=== PATIENT | female | born 1990 | race Caucasian/White ===

== ENCOUNTER 2017-03-19 17:25 | Emergency (ER) | payer OTHER ==
[~2017-03-19] VITALS: Ht 165.1 cm; Wt 111.1 kg
[2017-03-19 19:40] LABS: ALBUMIN 2.6 GM/DL (3.2-5.2); ALBUMIN/GLOBULIN RATIO 0.68 (1.00-1.93); ALKALINE PHOSPHATASE 102 U/L (45-117); ALT/SGPT 15 U/L (12-78); ANION GAP 9 MEQ/L (8-16); AST/SGOT 14 U/L (15-37); BILIRUBIN,DIRECT < 0.1 MG/DL (0.0-0.2); BILIRUBIN,TOTAL 0.2 MG/DL (0.2-1.0); BLOOD UREA NITROGEN 6 MG/DL (7-18); CALCIUM LEVEL 8.3 MG/DL (8.5-10.1); CARBON DIOXIDE LEVEL 22 MEQ/L (21-32); CHLORIDE LEVEL 106 MEQ/L (98-107); CREATININE FOR GFR 0.39 MG/DL (0.55-1.02); GLOMERULAR FILTRATION RATE > 60.0 (>60); GLUCOSE, FASTING 100 MG/DL (70-105); POTASSIUM SERUM 3.7 MEQ/L (3.5-5.1); SODIUM LEVEL 137 MEQ/L (136-145); TOTAL PROTEIN 6.4 GM/DL (6.4-8.2)
[2017-03-19 19:45] LABS: BASO % 0.1 % (0.0-1.0); EOS # 0.2 K/mm3 (0.0-0.50); FREE T4 0.99 NG/DL (0.76-1.46); LARGE UNSTAINED CELL # 0.1 K/mm3 (0.0-0.4); LARGE UNSTAINED CELL % 0.9 % (0.0-4.0); LYMPH # 1.3 K/mm3 (1.5-6.5); LYMPH % 15.1 % (24.0-44.0); MEAN CORPUSCULAR HEMOGLOBIN 27.2 pg (27.0-33.0); MEAN CORPUSCULAR HGB CONC 31.8 g/dl (32.0-36.5); MEAN CORPUSCULAR VOLUME 85.4 fl (80.0-96.0); MONO # 0.5 K/mm3 (0.0-0.8); MONO % 5.4 % (0.0-5.0); NEUTROPHILS # 6.3 K/mm3 (1.8-7.7); NEUTROPHILS % 75.5 % (36.0-66.0); PLATELET COUNT, AUTOMATED 269 k/mm3 (150-450); RED CELL DISTRIBUTION WIDTH 14.4 % (11.5-14.5); WHITE BLOOD COUNT 8.4 K/mm3 (4.0-10.0)
[2017-03-19 20:05] VITALS: BP 130/65
--- NOTE | 2017-03-20 08:26 | ECGEPIP ---
Stationary ECG Study [facility] - ED Test Date: 2017-03-19 Pat Name: SIRENA OJEDA Department: Room: - Gender: F Vamp Marker: annel : 1990 Requested By: EUGENE Zuniga Order Number: [id number] Reading MD: Liborio Alexander Measurements Intervals [place] Rate: 85 P: -20 HI: 136 QRS: 69 QRSD: 89 T: -5 QT: 355 QTc: 424 Interpretive Statements SINUS RHYTHM NSTTW ABNORMALITIES SIMILAR TO 11/04/15 Electronically Signed On 03-20-2017 8:25:48 EDT by Liborio Alexander
== END 2017-03-19 20:22 | disposition home or self-care (01) ==
LOC: M ED 18:19
DX: R07.89 Other chest pain (principal); E05.90 Thyrotoxicosis, unspecified without thyrotoxic crisis or storm; D64.9 Anemia, unspecified; I10 Essential (primary) hypertension; I27.2 Other secondary pulmonary hypertension

== ENCOUNTER 2018-03-21 18:21 | Emergency (ER) | payer OTHER ==
[2018-03-21] MEDS: IBUPROFEN 800 MG TAB PO (22:29)
== END 2018-03-21 22:59 | disposition home or self-care (01) ==
LOC: M ED 18:21
DX: S93.402A Sprain of unspecified ligament of left ankle, initial encounter (principal); X50.1XXA Overexertion from prolonged static or awkward postures, initial encounter; Y92.84 Military training ground as the place of occurrence of the external cause; Y93.89 Activity, other specified; Y99.1 Military activity; I10 Essential (primary) hypertension; I27.0 Primary pulmonary hypertension
CPT/HCPCS: 73610